=== PATIENT | male | born 1965 | race African-American/Black ===

== ENCOUNTER 2019-08-31 13:38 | Emergency (ER) | payer OTHER ==
[~2019-08-31] VITALS: Ht 177.8 cm; Wt 95.2 kg
[2019-08-31 14:30] VITALS: BP 146/77
--- NOTE | 2019-08-31 14:47 | RAD ---
Left thumb 3 views: Reason for examination: Thumb pain. No fracture or dislocation is evident. The bone density is normal. No abnormal periosteal reaction is seen. Joint spaces are maintained. No gross soft tissue abnormalities are seen. IMPRESSION: No acute bony abnormalities at the left thumb. Electronically signed by: Bertha Wall MD (08/31/2019 2:44 PM) [email or web address]
--- NOTE | 2019-08-31 14:50 | PHYS DOC ---
Adult General Chief Complaint Chief Complaint: LACERATION/AVULSION HPI HPI Patient is a 53 year old male who presents to the ED today complaining of left thumb injury, patient reports he accidentally hit his left thumb with a hummer claw. He is right-handed. Review of Systems Review of Systems Constitutional: Denies fever or chills [] Musculoskeletal: Reports left thumb injury Integument: Denies rash or skin lesions [] Neurologic: Denies headache, focal weakness or sensory changes [] All other systems were reviewed and found to be within normal limits, except as documented in this note. Current Medications Current Medications Current Medications Medications (Trade) Dose Ordered Sig/Tony Start Time Stop Time Status Last Admin Dose Admin Bupivacaine HCl (Sensorcaine Mpf 0.5%) 30 ml 1X ONCE 08/31/19 14:30 08/31/19 14:59 DC 08/31/19 15:22 30 ML Diphtheria/ Tetanus/Acell Pertussis (ADACEL TDap SYRINGE) 0.5 ml ONCE ONCE 08/31/19 15:00 08/31/19 15:01 DC Lidocaine HCl (Xylocaine-Mpf 1% 2ml Vial) 2 ml 1X ONCE 08/31/19 14:30 08/31/19 14:58 DC 08/31/19 15:22 2 ML Allergies Allergies Allergies Coded Allergies Type Severity Reaction Last Updated Verified lisinopril Allergy Unknown 08/31/19 Yes Physical Exam Physical Exam Constitutional: Well developed, well nourished, no acute distress, non-toxic appearance. [] Skin: Warm, dry, no erythema, no rash. [] Back: No tenderness, no CVA tenderness. [] Extremities: Distal end of the left thumb nailbed with two tiny nailbed lacerations. There is a small laceration on the lateral aspect of the distal thumb approx. 1 cm. Full ROM to the left thumb. Adequate radial sensation to the left thumb. Neurologic: Alert and oriented X 3, normal motor function, normal sensory function, no focal deficits noted. [] Psychologic: Affect normal, judgement normal, mood normal. [] Current Patient Data Vital Signs Vital Signs Date Time Temp Pulse Resp B/P (MAP) Pulse Ox O2 Delivery O2 Flow Rate FiO2 08/31/19 14:30 97.8 57 18 146/77 (100) 99 Room Air 97.8 EKG EKG [] Radiology/Procedures Radiology/Procedures []PROCEDURE: FINGER(S) LEFT Left thumb 3 views: Reason for examination: Thumb pain. No fracture or dislocation is evident. The bone density is normal. No abnormal periosteal reaction is seen. Joint spaces are maintained. No gross soft tissue abnormalities are seen. IMPRESSION: No acute bony abnormalities at the left thumb. Electronically signed by: Bertha Alston MD (08/31/2019 2:44 PM) [id number] DICTATED and SIGNED BY: BERTHA ALSTON MD DATE: 08/31/19 1444 Laceration/Wound Repair Wound Location: Left thumb Wound's Depth, Shape: Horizontal Wound Length (cm): 1 cm Wound Explored: clean Irrigated w/ Saline (ccs): 100 Betadine Prep?: Y Anesthesia for digital block: 1% lidocaine and 0.5% of bupivacaine Volume Anesthetic (ccs): 2ml/8 ml Wound Repaired With: Vicryl 4.0 Suture Type: Interrupted sutures Number of Sutures: 5 Progress : Wound was covered with nonstick dressing Course & Med Decision Making Course & Med Decision Making Pertinent Labs and Imaging studies reviewed. (See chart for details) This is a 53-year-old female patient who presents to the ED today with left thumb injury, patient accidentally hit his thumb with a hummer claw. Left hand x-rays interpreted by radiologist were negative for any acute findings. Patient's laceration was closed by me as noted in procedures. Wound care instructions and return precautions provided. Tetanus up-to-date Dragon Disclaimer Dragon Disclaimer This electronic medical record was generated, in whole or in part, using a voice recognition dictation system. Departure Departure Impression: Primary Impression: Laceration of left thumb Additional Impression: Contusion of left thumb Disposition: 01 HOME, SELF-CARE Condition: STABLE Referrals: UNKNOWN PCP NAME (PCP) Follow-up with your doctor as needed Patient Instructions: Fingertip Laceration Additional Instructions: Keep your laceration site clean and dry. You can apply Neosporin to eat twice a day for 7 days. Monitor the area for any signs of infection including but not limited to increased redness, warmth, yellow drainage from the area and return to the ED if they occur. Problem Qualifiers Primary Impression: Laceration of left thumb Encounter type: initial encounter Damage to nail status: without damage Foreign body presence: unspecified Qualified Codes: S61.012A - Laceration without foreign body of left thumb without damage to nail, initial encounter Additional Impression: Contusion of left thumb Encounter type: initial encounter Damage to nail status: without damage Qualified Codes: S60.012A - Contusion of left thumb without damage to nail, initial encounter CAROL XAVIER APRN Aug 31, 2019 14:50
[2019-08-31] MEDS: BUPIVACAINE MPF 0.5% 30 ML VIAL. INJ ONE (15:22)
[2019-08-31] MEDS: LIDOCAINE 1% PF 2 ML VIAL. INJ ONE (15:22)
[2019-08-31] MEDS: DIPH,PERTUSS(ACELL),TET VAC/PF 0.5 ML SYRINGE. VAX IM ONE (15:22)
== END 2019-08-31 15:48 | disposition home or self-care (01) ==
LOC: ER 13:38
DX: S61.012A Laceration without foreign body of left thumb without damage to nail, initial encounter (principal); S60.012A Contusion of left thumb without damage to nail, initial encounter; W22.8XXA Striking against or struck by other objects, initial encounter; Y93.89 Activity, other specified; Y92.89 Other specified places as the place of occurrence of the external cause; Y99.8 Other external cause status
CPT/HCPCS: 12001; 73140; 99283; J3490